=== PATIENT | male | born 1965 | race Caucasian/White ===

== ENCOUNTER 2023-11-14 08:22 | Inpatient (IN) | payer BC, OTHER ==
[2023-11-14] MEDS ORDERED: CEFAZOLIN 1 GM VIAL ONE (08:30)
[2023-11-14] MEDS ORDERED: Boostrix 0.5 ML (Tdap) VIAL (>/=7 yrs of age) ONE (08:30)
[2023-11-14] MEDS ORDERED: Sodium Chloride 0.9% 100 ML ONE (08:31)
[2023-11-14 08:42] LABS: #Basophils 0.06 10x3/uL (0.0-0.2); %Basophils 0.4 % (0.0-1.0); %Eosinophils 2.5 % (0.0-10.0); %Monocytes 6.3 % (0.0-10.0); %Neutrophils 69.1 % (42.0-75.0); Hematocrit 34.2 % (42.0-52.0); Hemoglobin 11.4 g/dL (14.0-18.0); Mean Corpuscular HGB CONC 33.3 g/dL (32.0-36.0); Mean Corpuscular Hemoglobin 29.7 pg (27.0-31.0); Mean Corpuscular Volume 89.1 fL (78.0-98.0); Mean Platelet Volume 10.7 fL (7.4-10.4); Platelet Count 373 10x3/uL (130-400); RBC Distribution Width 12.6 % (11.5-14.5); Red Blood Cell (RBC) Count 3.84 mill/uL (4.70-6.10)
[2023-11-14] MEDS ORDERED: fentaNYL 50 mcg/mL 1 mL Vial ONE ×2 (08:44→08:58)
[2023-11-14 08:51] LABS: INR-International Normal Ratio 1.2; Prothrombin Time 15.3 sec (12.0-14.7)
[2023-11-14 08:52] LABS: PTT 28.5 sec (22.9-36.1)
[2023-11-14] MEDS ORDERED: traMADol HCl 50 MG TAB PO PRN (08:59)
[2023-11-14] MEDS ORDERED: fentaNYL PF 100 MCG/2 ML SYRINGE ONE (08:59)
[2023-11-14] MEDS ORDERED: Ondansetron PF 4 MG/2 ML Vial IVP PRN (08:59)
[2023-11-14] MEDS ORDERED: Ondansetron ODT 4 MG TAB PO PRN (08:59)
[2023-11-14] MEDS ORDERED: Dextrose 50% Abboject 50 ML SYRINGE SLOW IVP PRN (08:59)
[2023-11-14] MEDS ORDERED: Dextrose 5% in Water 1,000 ML IV PRN (08:59)
[2023-11-14] MEDS ORDERED: Glucagon 1 MG/ML KIT IM PRN (08:59)
[2023-11-14] MEDS ORDERED: hydrALAZINE 20 MG/ML VIAL SLOW IVP PRN (08:59)
[2023-11-14 09:04] LABS: ALT (SGPT) 10 U/L (8-55); AST (SGOT) 12 U/L (5-34); Alkaline Phosphatase 47 U/L (40-110); Anion Gap 13 mmol/L (10-20); BUN (Urea Nitrogen) 16 mg/dL (8.4-25.7); Bilirubin, Total 0.4 mg/dL (0.2-1.2); Calc. Creatinine Clearance 0 mL/min (70-130); Carbon Dioxide 18 mmol/L (22-29); Chloride 111 mmol/L (98-107); Estimated GFR 68; Globulin 2.2 g/dL (2.4-3.5); Glucose 235 mg/dL (70-105); Potassium 3.6 mmol/L (3.5-5.1); Protein, Total 5.2 g/dL (6.0-8.3); Sodium 138 mmol/L (136-145)
[2023-11-14] MEDS ORDERED: Calcium Chloride 1 GM/10 ML Abboject SYRINGE ONE (09:11)
[2023-11-14] MEDS ORDERED: Rocuronium Bromide 10 MG/ML (10ML VIAL) ONE (09:29)
[2023-11-14] MEDS ORDERED: SUCCINYLCHOLINE/SOD CL,ISO/PF 200 MG/10 ML SYRINGE FS ONE (09:29)
[2023-11-14] MEDS ORDERED: Ondansetron PF 4 MG/2 ML Vial ONE (11:30)
[2023-11-14] MEDS ORDERED: Glycopyrrolate 0.2 MG/ML 5 ML SYRINGE ONE (11:30)
[2023-11-14] MEDS ORDERED: NEOSTIGMINE 3 MG/3 ML SYRINGE ONE (11:30)
[2023-11-14] MEDS ORDERED: PHENYLEPHRINE-NS 100 MCG/ML 10 ML SYRINGE ONE (11:37)
[2023-11-14] MEDS ORDERED: Fentanyl 250 MCG/5 ML VIAL ONE (11:52)
[2023-11-14] MEDS ORDERED: Iopamidol-370 76% 500 ML MDV (1 ML CHARGE) ONE (12:24)
[2023-11-14] MEDS: HYDROcodone/Acetaminophen 5/325 mg Tablet PO PRN (13:00)
[2023-11-14] MEDS: Morphine 4 MG/ML VIAL SLOW IVP PRN (13:01)
[2023-11-14] MEDS: TETANUS, DIPHTHERIA TOX,ADULT (TDVAX) 0.5 ML VIAL IM ONE (13:11)
[2023-11-14] MEDS: Famotidine 20 MG TAB PO SCH (13:12)
[2023-11-14 13:35] LABS: #Basophils 0.04 10x3/uL (0.0-0.2); #Eosinphils Less than 0.03 10x3/uL (0.0-0.7); %Basophils 0.2 % (0.0-1.0); %Lymphocytes 5.7 % (21.0-51.0); %Monocytes 5.8 % (0.0-10.0); %Neutrophils 87.4 % (42.0-75.0); Hematocrit 33.5 % (42.0-52.0); Hemoglobin 11.2 g/dL (14.0-18.0); Mean Corpuscular HGB CONC 33.4 g/dL (32.0-36.0); Mean Corpuscular Hemoglobin 30.4 pg (27.0-31.0); Mean Platelet Volume 10.7 fL (7.4-10.4); Platelet Count 279 10x3/uL (130-400); RBC Distribution Width 13.3 % (11.5-14.5); Red Blood Cell (RBC) Count 3.68 mill/uL (4.70-6.10)
[2023-11-14 13:49] LABS: Lactic Acid 2.6 mmol/L (0.5-2.2)
[2023-11-14 13:56] LABS: ALT (SGPT) 14 U/L (8-55); AST (SGOT) 23 U/L (5-34); Albumin 3.6 g/dL (3.5-5.0); Alkaline Phosphatase 50 U/L (40-110); Anion Gap 14 mmol/L (10-20); BUN (Urea Nitrogen) 14 mg/dL (8.4-25.7); Bilirubin, Total 1.2 mg/dL (0.2-1.2); Calc. Creatinine Clearance 0 mL/min (70-130); Calcium 9.1 mg/dL (7.8-10.44); Carbon Dioxide 22 mmol/L (22-29); Chloride 110 mmol/L (98-107); Estimated GFR 88; Globulin 2.4 g/dL (2.4-3.5); Glucose 153 mg/dL (70-105); Potassium 4.6 mmol/L (3.5-5.1); Sodium 141 mmol/L (136-145)
[2023-11-14] MEDS ORDERED: fentaNYL 50 mcg/mL 1 mL Vial SLOW IVP PRN (14:03)
[2023-11-14] MEDS ORDERED: Naloxone HCl 0.4 mg/ml Vial IV PRN (14:30)
[2023-11-14] MEDS ORDERED: Communication Order-Pharmacy FS SCH (14:30)
[2023-11-14] MEDS: CEFAZOLIN 2 GM in Sodium Chloride 0.9% 100 ML IVPB SCH (17:03)
[2023-11-14 20:47] LABS: Hemoglobin 9.5 g/dL (14.0-18.0)
[2023-11-14] MEDS: Rabies Immune Globulin/PF 300 UNITS/ML VIAL IM SCH (21:02)
[2023-11-14] MEDS: Rabies Vaccine Human 2.5 UNITS VIAL IM ONE (21:43)
[2023-11-15 01:21] LABS: Hematocrit 27.8 % (42.0-52.0); Hemoglobin 9.5 g/dL (14.0-18.0)
[2023-11-15 06:00] LABS: #Basophils 0.05 10x3/uL (0.0-0.2); %Basophils 0.3 % (0.0-1.0); %Eosinophils 0.3 % (0.0-10.0); %Lymphocytes 12.2 % (21.0-51.0); %Monocytes 10.3 % (0.0-10.0); %Neutrophils 76.4 % (42.0-75.0); Hematocrit 28.3 % (42.0-52.0); Hemoglobin 9.5 g/dL (14.0-18.0); Mean Corpuscular HGB CONC 33.6 g/dL (32.0-36.0); Mean Corpuscular Hemoglobin 29.9 pg (27.0-31.0); Mean Platelet Volume 10.8 fL (7.4-10.4); Platelet Count 253 10x3/uL (130-400); RBC Distribution Width 13.7 % (11.5-14.5); Red Blood Cell (RBC) Count 3.18 mill/uL (4.70-6.10)
[2023-11-15 06:58] LABS: Anion Gap 10 mmol/L (10-20); BUN (Urea Nitrogen) 14 mg/dL (8.4-25.7); Calc. Creatinine Clearance 211 mL/min (70-130); Calcium 8.2 mg/dL (7.8-10.44); Carbon Dioxide 22 mmol/L (22-29); Chloride 105 mmol/L (98-107); Estimated GFR 99; Glucose 100 mg/dL (70-105); Potassium 3.9 mmol/L (3.5-5.1); Sodium 133 mmol/L (136-145)
[2023-11-15 07:32] LABS: Hematocrit 26.8 % (42.0-52.0)
[2023-11-15] MEDS: Acetaminophen 325 MG TAB PO PRN (09:16)
[2023-11-15] MEDS: Methocarbamol 500 MG TAB PO PRN (09:17)
[2023-11-15] MEDS: Ketorolac Tromethamine 30 MG (1 mL) VIAL IVP SCH (09:23)
[2023-11-15] MEDS: Ketorolac Tromethamine 30 MG (1 mL) VIAL ONE (10:54)
[2023-11-15] MEDS: Piperacillin/Tazobactam 3.375 GM in Sodium Chloride 0.9% 100 ML IVPB SCH ×2 (12:18→16:40)
[2023-11-15] MEDS: Ondansetron PF 4 MG/2 ML Vial IVP PRN (12:24)
[2023-11-15 12:58] LABS: Hematocrit 26.1 % (42.0-52.0); Hemoglobin 8.9 g/dL (14.0-18.0)
[2023-11-15 19:38] LABS: Hematocrit 25.5 % (42.0-52.0); Hemoglobin 8.7 g/dL (14.0-18.0)
[2023-11-15] MEDS: Promethazine HCl 25 MG/ML VIAL IM PRN (21:44)
[2023-11-16 01:17] LABS: Hematocrit 26.1 % (42.0-52.0); Hemoglobin 8.9 g/dL (14.0-18.0)
[2023-11-16 05:29] VITALS: BMI 47.7
[2023-11-16 07:26] LABS: #Basophils Less than 0.03 10x3/uL (0.0-0.2); %Basophils 0.2 % (0.0-1.0); %Eosinophils 0.5 % (0.0-10.0); %Lymphocytes 5.9 % (21.0-51.0); %Monocytes 7.3 % (0.0-10.0); %Neutrophils 85.5 % (42.0-75.0); Hematocrit 25.9 % (42.0-52.0); Hemoglobin 8.8 g/dL (14.0-18.0); Mean Corpuscular Hemoglobin 30.4 pg (27.0-31.0); Mean Corpuscular Volume 89.6 fL (78.0-98.0); Mean Platelet Volume 10.5 fL (7.4-10.4); Platelet Count 189 10x3/uL (130-400); RBC Distribution Width 13.2 % (11.5-14.5); Red Blood Cell (RBC) Count 2.89 mill/uL (4.70-6.10)
[2023-11-16 07:40] LABS: Anion Gap 11 mmol/L (10-20); BUN (Urea Nitrogen) 10 mg/dL (8.4-25.7); Calc. Creatinine Clearance 222 mL/min (70-130); Calcium 8.5 mg/dL (7.8-10.44); Carbon Dioxide 22 mmol/L (22-29); Chloride 105 mmol/L (98-107); Estimated GFR 102; Glucose 138 mg/dL (70-105); Potassium 3.7 mmol/L (3.5-5.1); Sodium 134 mmol/L (136-145)
[2023-11-16] MEDS ORDERED: Ondansetron PF 4 MG/2 ML Vial ONE (10:35)
[2023-11-16] MEDS ORDERED: PROPOFOL 20 ML ONE ×2 (11:15→12:52)
[2023-11-16] MEDS ORDERED: Midazolam HCl 2 mg/2 ml Vial ONE (11:15)
[2023-11-16] MEDS ORDERED: Fentanyl 250 MCG/5 ML VIAL ONE (11:15)
[2023-11-16] MEDS ORDERED: Bupivacaine 0.25% HCL 30 ML VIAL ONE (11:18)
[2023-11-16] MEDS ORDERED: EPINEPHrine 1 MG/ML VIAL ONE (11:18)
[2023-11-16] MEDS ORDERED: Dexamethasone 20 MG/5 ML VIAL ONE (11:46)
[2023-11-16] MEDS ORDERED: Lidocaine 1% PF 5 ML VIAL ONE (11:46)
[2023-11-16] MEDS ORDERED: HYDROmorphone 2 MG/ML VIAL ONE ×2 (12:11→14:04)
[2023-11-16] MEDS ORDERED: PHENYLEPHRINE-NS 100 MCG/ML 10 ML SYRINGE ONE (12:23)
[2023-11-16] MEDS ORDERED: SUGAMMADEX SODIUM 200 MG/2 ML VIAL ONE ×2 (12:23→13:35)
[2023-11-16] MEDS ORDERED: Bacitracin Zinc Ointment 30 gm TUBE ONE (12:57)
[2023-11-16] MEDS: Bacitracin 1 PK TOP SCH (15:05)
[2023-11-17] MEDS ORDERED: HYDROcodone/Acetaminophen 7.5/325 mg Tablet PO PRN (05:39)
[2023-11-17] MEDS: diphenhydrAMINE 50 MG/ML VIAL IVP PRN (06:09)
[2023-11-17] MEDS ORDERED: Morphine 2 MG/ML VIAL SLOW IVP PRN (08:04)
[2023-11-17] MEDS ORDERED: traMADol HCl 50 MG TAB PO PRN (08:04)
[2023-11-17] MEDS ORDERED: Cyclobenzaprine 10 MG TAB PO PRN (08:04)
[2023-11-17] MEDS: Senokot S 8.6-50 MG TAB PO SCH (08:29)
[2023-11-17] MEDS: Polyethylene Glycol 3350 17 GM Packet PO SCH (08:30)
[2023-11-17] MEDS: Heparin 5,000 UNITS/ML VIAL SC SCH (08:30)
[2023-11-17] MEDS: Acetaminophen 325 MG TAB PO SCH (08:30)
[2023-11-17] MEDS: traMADol HCl 50 MG TAB PO SCH (12:12)
[2023-11-17] MEDS: Rabies Vaccine Human 2.5 UNITS VIAL IM ONE (21:48)
[2023-11-18] MEDS: Sodium Chloride 0.9% 1,000 ML IV SCH (03:30)
[2023-11-18 06:15] LABS: #Basophils Less than 0.03 10x3/uL (0.0-0.2); %Basophils 0.3 % (0.0-1.0); %Eosinophils 2.2 % (0.0-10.0); %Lymphocytes 18.2 % (21.0-51.0); %Monocytes 7.7 % (0.0-10.0); %Neutrophils 71.2 % (42.0-75.0); Hemoglobin 7.7 g/dL (14.0-18.0); Mean Corpuscular HGB CONC 32.1 g/dL (32.0-36.0); Mean Corpuscular Hemoglobin 29.6 pg (27.0-31.0); Mean Corpuscular Volume 92.3 fL (78.0-98.0); Mean Platelet Volume 10.4 fL (7.4-10.4); Platelet Count 279 10x3/uL (130-400); RBC Distribution Width 13.3 % (11.5-14.5)
[2023-11-19 07:19] LABS: #Basophils 0.04 10x3/uL (0.0-0.2); %Basophils 0.6 % (0.0-1.0); %Eosinophils 5.5 % (0.0-10.0); %Lymphocytes 20.8 % (21.0-51.0); %Monocytes 8.5 % (0.0-10.0); %Neutrophils 63.6 % (42.0-75.0); Hematocrit 23.8 % (42.0-52.0); Hemoglobin 7.7 g/dL (14.0-18.0); Mean Corpuscular HGB CONC 32.4 g/dL (32.0-36.0); Mean Corpuscular Hemoglobin 30.1 pg (27.0-31.0); Mean Platelet Volume 9.8 fL (7.4-10.4); Platelet Count 260 10x3/uL (130-400); Red Blood Cell (RBC) Count 2.56 mill/uL (4.70-6.10)
[2023-11-19 07:33] LABS: Anion Gap 9 mmol/L (10-20); Calcium 8.3 mg/dL (7.8-10.44); Carbon Dioxide 29 mmol/L (22-29); Chloride 107 mmol/L (98-107); Potassium 3.3 mmol/L (3.5-5.1); Sodium 142 mmol/L (136-145)
[2023-11-19 07:49] LABS: BUN (Urea Nitrogen) 11 mg/dL (8.4-25.7); Calc. Creatinine Clearance 235 mL/min (70-130); Estimated GFR 103; Glucose 105 mg/dL (70-105)
[2023-11-19] MEDS: Acetaminophen 500 MG TAB PO SCH ×2 (10:06→13:38)
[2023-11-19] MEDS: Gabapentin 300 MG CAP PO SCH (10:06)
[2023-11-19] MEDS: Amoxicillin/Potassium Clav 500 MG TAB PO SCH (10:06)
[2023-11-19] MEDS: traMADol HCl 50 MG TAB PO PRN (20:48)
[2023-11-20] MEDS ORDERED: Lidocaine 4% Topical Sol 50 ML BOT TOP SCH (12:15)
[2023-11-20] MEDS: Morphine 2 MG/ML VIAL SLOW IVP SCH (13:20)
[2023-11-20] MEDS: Ibuprofen 200 MG TAB PO PRN (14:49)
[2023-11-20 17:26] VITALS: BP 136/79; TEMP 97.3
[2023-11-21 09:58] VITALS: BMI 48.1
[2023-11-21] MEDS ORDERED: Rabies Vaccine Human 2.5 UNITS VIAL IM ONE (21:00)
[2023-11-28] MEDS ORDERED: Rabies Vaccine Human 2.5 UNITS VIAL IM ONE (21:00)
== END 2023-11-20 18:55 | DRG 907 ==
LOC: ERS 08:22 → SDC 09:19 → IMCU/EMU 12:51 → SURG A 11-17 10:28
PROVIDERS: ADMIT Student in an Organized Health Care Education/Training Program; ATTEND Student in an Organized Health Care Education/Training Program
PROC: 0KDT0ZZ Extraction of Left Lower Leg Muscle, Open Approach (ICD-10-PCS; principal; 2023-11-17)
PROC: 0YQH0ZZ Repair Right Lower Leg, Open Approach (ICD-10-PCS; 2023-11-17)
PROC: 0Y3H0ZZ Control Bleeding in Right Lower Leg, Open Approach (ICD-10-PCS; 2023-11-17)
PROC: 0YQJ0ZZ Repair Left Lower Leg, Open Approach (ICD-10-PCS; 2023-11-17)
PROC: 06QY0ZZ Repair Lower Vein, Open Approach (ICD-10-PCS; 2023-11-17)
PROC: 06LY0ZZ Occlusion of Lower Vein, Open Approach (ICD-10-PCS; 2023-11-17)
PROC: 0JD70ZZ Extraction of Back Subcutaneous Tissue and Fascia, Open Approach (ICD-10-PCS; 2023-11-17)
PROC: 30233K1 Transfusion of Nonautologous Frozen Plasma into Peripheral Vein, Percutaneous Approach (ICD-10-PCS; 2023-11-17)
PROC: 30233N1 Transfusion of Nonautologous Red Blood Cells into Peripheral Vein, Percutaneous Approach (ICD-10-PCS; 2023-11-17)
PROC: 6A550Z2 Pheresis of Platelets, Single (ICD-10-PCS; 2023-11-17)
DX: S85.812A Laceration of other blood vessels at lower leg level, left leg, initial encounter (principal); T79.4XXA Traumatic shock, initial encounter; K56.7 Ileus, unspecified; S86.822A Laceration of other muscle(s) and tendon(s) at lower leg level, left leg, initial encounter; Z68.42 Body mass index [BMI] 45.0-49.9, adult; S84.12XA Injury of peroneal nerve at lower leg level, left leg, initial encounter; S71.111A Laceration without foreign body, right thigh, initial encounter; M21.371 Foot drop, right foot; E66.01 Morbid (severe) obesity due to excess calories; S31.811A Laceration without foreign body of right buttock, initial encounter; Z96.643 Presence of artificial hip joint, bilateral; W55.49XA Other contact with pig, initial encounter; Y93.89 Activity, other specified; Y92.89 Other specified places as the place of occurrence of the external cause
CPT/HCPCS: 36415; 36416; 36430; 74018; 74176; 75635; 80048; 80053; 83605; 85014; 85018; 85025; 85610; 85730; 86850; 86900; 86901; 87070; 87205; 90375; 90471; 90675; 90715; 93970; 96374; 96375; 97139; G0390; J0171; J0665; J0690; J1100; J1170; J1200; J1644; J1885; J2250; J2270; J2272; J2405; J2543; J2550; J2704; J3010; J3490; J7050; J7070; P9016; P9035; P9048; P9059; Q9967